=== PATIENT | female | born 1965 | race Caucasian/White ===

== ENCOUNTER 2018-04-08 07:49 | Observation (INO) ==
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
[2018-04-08] MEDS ORDERED: Sodium Chlor 0.9% Inj 500 ML IV.CONT ONE (08:45)
[2018-04-08] MEDS ORDERED: Metoprolol Tartrate 25 MG Tablet PO ONE (08:45)
[2018-04-08] MEDS ORDERED: Chlorhexidine Gluconate 2% 1 Pack (2 Cloths) TOPICAL ONE (08:45)
[2018-04-08] MEDS ORDERED: Vancomycin Inj 1,000 MG in Sodium Chlor 0.9% Inj 250 ML IV.SIG ONE (09:00)
[2018-04-08] MEDS ORDERED: Bupivacaine/Epinephrine PF Inj 0.5% 30 ML Vial ONE (09:21)
[2018-04-08] MEDS ORDERED: Thrombin Topical Soln 5,000 UNIT Vial TOPICAL ONE ×2 (09:21→10:57)
[2018-04-08] MEDS ORDERED: Gelatin Size 100 Topical Foam ONE (09:22)
[2018-04-08] MEDS ORDERED: Propofol Inj 500 MG/50 ML Vial ONE (09:22)
[2018-04-08] MEDS ORDERED: Bisacodyl 10 MG Supp RECTAL PRN (09:45)
[2018-04-08] MEDS ORDERED: Menthol 5.8 MG Lozenge BUCCAL PRN (09:45)
[2018-04-08] MEDS ORDERED: Aluminum/Magnesium/Simethacone Susp 30 ML UDC PO PRN (09:45)
[2018-04-08] MEDS ORDERED: fentaNYL Citrate Inj 100 MCG/2 ML Ampul ONE (11:47)
--- NOTE | 2018-04-08 11:59 | P.OP ---
- Preoperative Diagnosis (1) Stenosis of cervical spine with myelopathy (2) Other cervical disc degeneration at C5-C6 level (3) Protrusion of cervical intervertebral disc Date of procedure: 04/08/18 Procedure: Anterior cervical C5-6 microdiscectomy with interbody fusion; anterior C5-6 cervical plate placement; C5 and 6 interbody cage placement; microsurgical technique Anesthesia: JOSÉ MIGUEL Surgeon: Tim Tyson MD Door Patcher: Daren Rehman Estimated blood loss (mL): 30 Operation and Findings: Following administration of general endotracheal anesthesia with the neck maintaining a neutral position in a Callender collar, the patient received a gram of vancomycin and Decadron 10 mg intravenously. Sequential compression devices were placed in supine position on a Manav table and all pressure points adequately padded. The head secured in a donut and anterior cervical region then shaved and prepped with Chloraprep and sterilely draped with Ioban along with the usual sterile draping. A transverse skin incision on the left side of the neck was then made after infiltrating the skin with 0.5% Marcaine with epinephrine solution extending down through the platysma. At the anterior border of the sternocleidomastoid further dissection was undertaken developing a plane between the carotid sheath laterally and the trachea esophagus medially. The prevertebral fascia was exposed and dissected out. The medial attachments of the longus colli muscles were detached and a self-retaining retractor used for exposure. The C5-6 disc space was localized with a marking the disc space and using lateral fluoroscopy. Butte distraction screws 14 mm length were placed one in the C5 and one in the C6 body interbody distraction and exposure. There was significant disc degeneration with disc height collapse and anterior osteophytes noted at the C5-6 level and the osteophytes were resected with a Leksell and annulus incised with a 15 blade and further dissection undertaken using microtechnique with microscope magnification. Diskectomy was undertaken with pituitaries and the endplates were also decorticated with curettes and drill bit. And more posteriorly there was disk osteophyte complex compressing the thecal sac along with a significant uncovertebral joint hypertrophy with foraminal stenosis which was decompressed along with removal of the posterior longitudinal ligaments at both levels. The foramen was decompressed bilaterally using a Kerrison's and palpation with a nerve hook, the exiting nerve roots were felt to be free. The area was then copiously irrigated. I then placed a Peek cage packed with local autograft bone at the C5-6 interspace under fluoroscopy guidance. Butte distraction pins were removed and the holes plugged with Gelfoam for hemostasis. In order to facilitate the fusion and provide stabilization, a Precision spine cervical Uniplate was then placed with 14 mm variable angle screw in the C5 body and 14 mm fixed angle screw in the C6 body. The plate screw locking mechanism was then engaged. AP and lateral fluoroscopy confirmed good placement of the construct and the retractor was then removed. Muscular bleeding points were cauterized with bipolar cautery and Gelfoam was then also used for hemostasis which was removed. The platysma was then approximated using 3-0 Vicryl interrupted stitches and 3-0 Vicryl subcuticular stitch also placed in an interrupted fashion, and final skin closure was with Mastisol and Steri-Strips. Sterile dressing was then applied. The patient was then extubated and taken to the recovery room. There are no intraoperative complications and all sponge and needle counts were correct at the end of procedure. Estimated blood loss was about 30 cc. The patient did undergo intraoperative neurologic monitoring which remained stable throughout the surgery.
[2018-04-08] MEDS ORDERED: *morphine SULFATE 4 MG/ML PERIprocedure ONLY ONE (12:03)
--- NOTE | 2018-04-08 12:52 | XR ---
EXAM DATE: 04/08/2018 12:43 PM EST AGE/SEX: 53 years / Female INDICATIONS: Post-op C5-C6 anterior cervical fusion. CLINICAL DATA: This is the patient's initial encounter. Patient reports that signs and symptoms have been present for 1 day and indicates a pain score of Nonresponsive. MEDICAL/SURGICAL HISTORY: Non-responsive. Non-responsive. COMPARISON: [facility] [place] CERVICAL COMPLETE ([id number]), 08/24/2012. . FINDINGS: Multiple coned down views of the cervical spine were obtained and demonstrate the patient is status p ost interval anterior fusion at the C5-6 level with anterior screw plate fixation device. Bone grafti ng material is noted in the interspaces. There is a mild anterior spondylolisthesis of C4 on C5 again noted. The lower vertebral column is not well visualized or evaluated. CONCLUSION: 1. Status post interval anterior fusion at the C5-6 level. 2. Mild grade 1 anterior spondylolisthesis of C4 on C5 again noted. Electronically signed by: Ren Salmeron MD 04/08/2018 12:51 PM EST
[2018-04-08] MEDS: Gabapentin 100 MG Capsule PO SCH ×2 (13:30→17:39)
[2018-04-08] MEDS ORDERED: *Meperidine Inj 25 MG/ML Vial PERIprocedural Use ONLY ONE (13:38)
[2018-04-08] MEDS: ceFAZolin 1 GM Premix Inj 1 GM/50 ML PIGGYBACK IV.SIG SCH ×2 (14:29→22:23)
[2018-04-08] MEDS: Morphine Sulfate Inj 2 MG/ML Vial IV.PUSH PRN (18:23)
[2018-04-08] MEDS: Senna/Docusate Sodium 8.6/50 MG Tablet PO SCH (20:38)
[2018-04-08] MEDS ORDERED: Zolpidem Tartrate 5 MG Tablet PO PRN (21:00)
[2018-04-09] MEDS: Morphine Sulfate Inj 2 MG/ML Vial IV.PUSH PRN (04:46)
[2018-04-09 05:47] VITALS: O2SAT 94
[2018-04-09] MEDS: Gabapentin 100 MG Capsule PO SCH (08:15)
[2018-04-09] MEDS: Senna/Docusate Sodium 8.6/50 MG Tablet PO SCH (08:15)
[2018-04-09] MEDS: ceFAZolin 1 GM Premix Inj 1 GM/50 ML PIGGYBACK IV.SIG SCH (08:21)
[2018-04-09 08:24] VITALS: BP 129/58; PULSE 75; RESP 18; TEMP 98
[2018-04-09] MEDS ORDERED: amLODIPine 10 MG Tablet PO SCH (09:00)
--- NOTE | 2018-04-09 09:18 | P.PNNS ---
Subjective Interval history: Pt s/p Anterior cervical C5-6 microdiscectomy with interbody fusion; anterior C5 -6 cervical plate placement; C5 and 6 interbody cage placement; microsurgical technique on 04/08/18. She is doing very well. She denies any difficulty swallowing. She is ambulating very well. She has some incisional pain. No radiculopathy in UEs. Physical Exam Vital signs: Vital Signs 04/08/18 11:43 04/08/18 12:00 04/08/18 12:15 Temperature 98 F Pulse Rate 74 76 64 Respiratory Rate 18 18 18 Blood Pressure 146/85 H 141/83 H 147/82 H Pulse Oximetry 98 98 98 04/08/18 12:30 04/08/18 12:45 04/08/18 13:45 Temperature Pulse Rate 68 64 71 Respiratory Rate 18 18 18 Blood Pressure 136/76 135/74 138/77 Pulse Oximetry 98 98 98 04/08/18 15:15 04/08/18 16:00 04/08/18 16:31 Temperature 98.1 F 97.5 F L Pulse Rate 71 76 Respiratory Rate 18 17 14 Blood Pressure 127/79 142/81 H Pulse Oximetry 98 93 L 04/08/18 19:58 04/08/18 20:39 04/08/18 22:24 Temperature 97.9 F Pulse Rate 78 Respiratory Rate 17 20 18 Blood Pressure 131/69 Pulse Oximetry 93 L 04/08/18 23:48 04/09/18 01:16 04/09/18 04:37 Temperature 98.0 F 97.9 F Pulse Rate 75 76 Respiratory Rate 18 17 19 Blood Pressure 123/66 130/75 Pulse Oximetry 93 L 94 L 04/09/18 05:01 04/09/18 05:02 04/09/18 08:24 Temperature 98.0 F Pulse Rate 75 Respiratory Rate 18 17 18 Blood Pressure 129/58 L Pulse Oximetry 94 L Intake & Output 04/08/18 04/09/18 04/09/18 18:59 06:59 18:59 Intake Total 1660 / 1660 2490 / 2490 Output Total 50 / 50 Balance 1610 / 1610 2490 / 2490 Weight 57.3 kg 62.3 kg Intake: IV 1300 / 1300 1050 / 1050 LR 1000 mL Inj 1,000 ML @ 30 1000 / 1000 mls/hr IV.CONT .Q24H [facility] Rx#: [id number] NS + KCl 20 mEq Inj 1,000 ML @ 1000 / 1000 100 mls/hr IV.CONT .Q10H [facility] Rx #:[id number] Vancomycin Inj 1,000 MG In NS 250 / 250 Inj 250 ML @ 250 mls/hr IV.SIG [employer] ONE Rx#:[id number] Ancef 1 GM Premix Inj 1 gm In 50 / 50 50 / 50 50 ml @ 100 mls/hr IV.SIG Q8H [facility] Rx#:[id number] Oral 360 / 360 1440 / 1440 Output: Estimated Blood Loss 50 / 50 Other: # Voids 1 7 Date of Last Bowel Movement 04/08/18 04/09/18 # Bowel Movements 1 Weight On Admission 57.3 kg - Constitutional no acute distress, average body habitus, cooperative - Routine HEENT Exam Head: Present: normocephalic Eye: Present: PERRL. Absent: conjunctival icterus - Routine Respiratory Exam Present: CTA bilaterally. Absent: respiratory distress, rhonchi, wheezes - Routine Cardiovascular Exam Present: RRR, S1, S2. Absent: murmur - Routine Abdominal Exam Present: soft, normoactive bowel sounds. Absent: distended, firm - Routine Skin Exam Absent: cyanosis, erythema Comments: Incision clean and dry without signs of infection. - Routine Neurological Exam Present: alert, moving all extremities, normal speech. Absent: motor deficit, altered mental status - Routine Psychiatric Exam Present: normal affect, cooperative, anxious. Absent: depressed, agitated Assessment and Plan - Assessment (1) Stenosis of cervical spine with myelopathy Code(s): M48.02 - Spinal stenosis, cervical region; G99.2 - Myelopathy in diseases classified elsewhere Status: Chronic (2) Other cervical disc degeneration at C5-C6 level Code(s): M50.322 - Other cervical disc degeneration at C5-C6 level Status: Chronic (3) Protrusion of cervical intervertebral disc Code(s): M50.20 - Other cervical disc displacement, unspecified cervical region Status: Chronic - Plan A: Pt s/p Anterior cervical C5-6 microdiscectomy with interbody fusion; anterior C5-6 cervical plate placement; C5 and 6 interbody cage placement; microsurgical technique on 04/08/[address] Tyson. P: Discharge pt home Keep incision clean and dry. Discussed incisional care with pt. Discussed restrictions.
== END 2018-04-09 10:30 | disposition home or self-care (01) ==
LOC: HSDC 07:49 → HSDI 07:49 → N06 15:45
PROVIDERS: ADMIT Neurological Surgery; ATTEND Neurological Surgery

== ENCOUNTER 2018-04-24 13:59 | Inpatient (IN) ==
[2018-04-24] MEDS ORDERED: Sod Chloride 0.9% Inj 1,000 ML IV.SIG SCH ×2 (14:45→16:45)
--- NOTE | 2018-04-24 14:54 | XR ---
EXAM DATE: 04/24/2018 2:51 PM EST AGE/SEX: 53 years / Female INDICATIONS: Fever. CLINICAL DATA: This is the patient's initial encounter. Patient reports that signs and symptoms have been present for 2 days and indicates a pain score of 8/10. MEDICAL/SURGICAL HISTORY: Hypertension. . Cervical spine surgery. COMPARISON: [facility] – [place], CHEST 2V PA&LAT, 04/02/2018. . FINDINGS: A single AP view of the chest demonstrates the lungs to be symmetrically aerated without evidence of mass, infiltrate or effusion. The lungs are hyperaerated bilaterally. The cardiomediastinal contours are unremarkable. Osseous structures are intact. CONCLUSION: No acute intrathoracic disease. Stable examination. Electronically signed by: Nitish Delaney MD Board Certified Radiologist 04/24/2018 2:53 PM EST
[2018-04-24 15:17] LABS: Baso % (Auto) 0.3 % (0.0-2.0); Eos % (Auto) 0.2 % (0.0-4.0); Hematocrit 37.2 % (35.0-46.0); Hemoglobin 13.2 gm/dL (11.6-15.3); Lymph # (Auto) 0.9 th/mm3 (1.0-4.8); Lymph % (Auto) 6.4 % (9.0-44.0); Mean Corpuscular HGB Conc 35.5 % (32.0-36.0); Mean Corpuscular Hemoglobin 31.2 pg (27.0-34.0); Mean Corpuscular Volume 87.9 fL (80.0-100.0); Mean Platelet Volume 7.8 fL (7.0-11.0); Mono # (Auto) 1.3 th/mm3 (0.0-0.9); Mono % (Auto) 9.3 % (0.0-8.0); Neut % (Auto) 83.8 % (16.0-70.0); Platelet Count 303 th/mm3 (150-450); Red Blood Count 4.23 mil/mm3 (4.00-5.30); Red Cell Distribution Width 13.8 % (11.6-17.2); White Blood Count 14.3 th/mm3 (4.0-11.0)
--- NOTE | 2018-04-24 15:24 | CT ---
EXAM DATE: 04/24/2018 3:12 PM EST AGE/SEX: 53 years / Female INDICATIONS: Neck pain, swelling. Fever. CLINICAL DATA: This is the patient's initial encounter. Patient reports that signs and symptoms have been present for 2 days and indicates a pain score of 6/10. MEDICAL/SURGICAL HISTORY: Hypertension. Tubal ligation. Cervical fusion two weeks ago. Mandible surgery. RADIATION DOSE: 13.98 CTDI (mGy) COMPARISON: [facility] – [place], [place] LUMBAR SPINE W/O CONTRAST, 03/08/2018. [facility] – [place], CT THORACIC SPINE W/O CONTRAS T, 03/08/2018. . TECHNIQUE: Contiguous axial images were obtained using helical multirow detector technique. The vol umetric data was post-processed with multiplanar reconstruction in oblique axial, sagittal, and coron al planes. Using automated exposure control and adjustment of the mA and/or kV according to patient s ize, radiation dose was kept as low as reasonably achievable to obtain optimal diagnostic quality kisha ges. DICOM format image data is available electronically for review and comparison. FINDINGS: Anterior cervical fusion hardware is noted at C5 and C6. There is no acute fracture or prevertebral s oft tissue swelling. Cervical spondylosis is noted at C4-5 and C6-7. Mild scoliosis is noted. C2-3: The bony spinal canal is normal in size. No evidence of disc bulge or herniation. Mild bilate ral foraminal narrowing is noted. C3-4: The bony spinal canal is normal in size. No evidence of disc bulge or herniation. Mild bilate ral foraminal narrowing is noted. C4-5: Mild spinal stenosis is noted. Severe left neuroforaminal narrowing and mild right neuroforami nal narrowing are noted. C5-6: Moderate spinal stenosis is noted. Severe right neuroforaminal narrowing and moderate left jose roforaminal narrowing are noted. C6-7: The bony spinal canal is normal in size. No evidence of disc bulge or herniation. Moderate ri ght neuroforaminal narrowing is noted. C7-T1: The bony spinal canal is normal in size. No evidence of disc bulge or herniation. The neura l foramina are bilaterally patent. CONCLUSION: 1. No acute fracture or prevertebral soft tissue swelling. 2. Moderate spinal stenosis, severe right neuroforaminal narrowing and moderate left foraminal narro wing at C5-6. 3. Mild spinal stenosis, severe left neuroforaminal narrowing, and mild right neuroforaminal narrowi ng at C4-5. 4. Moderate right neuroforaminal narrowing at C6-7. 5. Mild bilateral foraminal narrowing is noted at C2-3 and C3-4. 6. Scoliosis of the cervical spine. Electronically signed by: Daren Rodriguez MD Board Certified Radiologist 04/24/2018 3:23 PM EST
--- NOTE | 2018-04-24 15:25 | ED ---
HPI General Chief Complaint: Fever Stated Complaint: Fever Complaint Time Seen by Provider: 04/24/18 14:24 Source: patient and family Mode of arrival: ambulatory Limitations: no limitations History of Present Illness HPI Narrative: Patient is a 53-year-old female presenting to emergency department for evaluation of fevers. Patient has had a max temp of 102.6, symptoms been ongoing for the last 2 days. Patient reports generalized body aches and fatigue. Patient states she vomited this morning which was just clear fluids and possibly her home morning medications. She reports urinary frequency and 6 out of 10 lower back pain is constant and aching. Patient had a cervical fusion done approximately 2 weeks ago, she denies any increase in neck pain. Symptom onset was gradual, symptoms are moderate. She does report that she has a 13-year-old daughter who complained of a sore throat but has been otherwise well. Past medical history is significant also for hypertension. Patient has not taken any medications recently, she took NyQuil around 4 AM this morning. Patient denies any redness, foul odor or drainage from previous incision site. MD complaint: Reports fever and malaise Onset (ago): day(s) (2) Maximum Temperature: 102.6 F Temperature Source: oral Context: Reports sick contacts Associated symptoms: Reports chills, myalgias, nasal congestion, cough and vomiting Relieving factors: nothing Exacerbating factors: nothing Treatments prior to arrival fever: Reports "cold medicine" Related Data Home Medications Medication Instructions Recorded Confirmed gabapentin 100 mg PO TID 03/08/18 04/24/18 amlodipine 10 mg PO DAILY 04/02/18 04/24/18 cyclobenzaprine 5 mg PO TID PRN 04/08/18 04/24/18 Previous Rx's Medication Instructions Recorded hydrocodone-acetaminophen 1 tab PO Q4H PRN #60 tab 04/08/18 Allergies Allergy/AdvReac Type Severity Reaction Status Date / Time erythromycin base Allergy Severe RASH AND Verified 04/24/18 14:17 SOB Review of Systems ROS: all other systems reviewed are negative [facility] Medical History Medical History Anxiety (Acute) Arthritis (Acute) Chronic headaches (Acute) Chronic neck and back pain (Acute) Depression (Acute) High cholesterol (Acute) Hypertension (Acute) No natural teeth (Acute) Right pupil malformation (Acute) Surgical History Surgical History H/O tubal ligation (Acute) History of mandibular surgery (Acute) S/P emergency tracheotomy for assistance in breathing (Acute) Social History Social History Substance History: No History of Abuse Second Hand Smoke Exposure: Yes Smoking Status: Current every day smoker Tobacco Type: Cigarettes How Often Do You Have a Drink Containing Alcohol: 2 to 4 times a month Recent Travel in [facility] within the Last 8 Weeks: No Recent Out of Country Travel within the Last 8 Weeks: No Immunization History Tetanus Immunization: Unsure Exam Narrative Exam Narrative: GENERAL: Thin, well-developed, alert female. Appears uncomfortable, no acute distress. SKIN: Focused skin assessment warm/dry. Healed incision to anterior cervical area, no redness, drainage, induration noted. HEAD: Atraumatic. Normocephalic. EYES: Pupils equal and round. No scleral icterus. No injection or drainage. ENT: No nasal bleeding or discharge. Mucous membranes pink and moist. NECK: Trachea midline. No JVD. CARDIOVASCULAR: Tachycardic. No murmur appreciated. RESPIRATORY: No accessory muscle use. Clear to auscultation. Breath sounds equal bilaterally. GASTROINTESTINAL: Abdomen soft, non-tender, nondistended. Hepatic and splenic margins not palpable. MUSCULOSKELETAL: No obvious deformities. No clubbing. No cyanosis. No edema. NEUROLOGICAL: Awake and alert. No obvious cranial nerve deficits. Motor grossly within normal limits. Normal speech. PSYCHIATRIC: Appropriate mood and affect; insight and judgment normal. Course Initial Documented Vital Signs Temperature 101.6 F H 04/24/18 14:15 Pulse Rate 123 H 04/24/18 14:15 Respiratory Rate 22 04/24/18 14:15 Blood Pressure 136/73 04/24/18 14:15 Pulse Oximetry 97 04/24/18 14:15 Last Documented Vital Signs Temperature 100.9 F H 04/24/18 16:34 Pulse Rate 120 H 04/24/18 16:34 Respiratory Rate 15 04/24/18 16:34 Blood Pressure 106/58 L 04/24/18 16:34 Pulse Oximetry 96 04/24/18 16:34 Medical Decision Making MDM Narrative Medical decision making narrative: Patient is a 53-year-old female presenting with 2 days of fevers and body aches. Patient has temp on arrival, she is mildly tachycardic. Sepsis workup initiated. Patient will be given acetaminophen IV for fever. IV fluids ordered. CBC with white blood cell count of 14.3, lactic acid 2.0, urinalysis is consistent with a urinary tract infection, reflex culture is pending. Chemistry is unremarkable. Patient continued to have a low-grade fever after administration of IV acetaminophen, ibuprofen p.o. ordered. Patient will also be given additional liter of IV fluids. Patient was given Zosyn IV. CT scan of the cervical spine shows no soft tissue swelling. Patient meets sepsis criteria, discussed with Dr. Perez who accepted admission. Admit orders placed. Patient and spouse were advised on clinical findings and plan of care and are agreeable. Medical Screen Exam Complete: Yes Emergency Medical Condition: Yes Differential Diagnosis Differential Diagnosis: Postoperative infection versus influenza versus viral syndrome versus pneumonia versus other Medical Records Medical records reviewed: Yes I reviewed the patient's medical records. Lab Data Lab results reviewed: Yes I reviewed the patient's lab results. Result diagrams: 04/24/18 14:45 04/24/18 14:45 Lab Results 04/24/18 04/24/18 04/24/18 Range/Units 14:45 14:45 14:45 WBC 14.3 H (4.0-11.0) th/mm3 RBC 4.23 (4.00-5.30) mil/mm3 Hgb 13.2 (11.6-15.3) gm/dL Hct 37.2 (35.0-46.0) % MCV 87.9 (80.0-100.0) fL MCH 31.2 (27.0-34.0) pg MCHC 35.5 (32.0-36.0) % RDW 13.8 (11.6-17.2) % Plt Count 303 (150-450) th/mm3 MPV 7.8 (7.0-11.0) fL Neut % (Auto) 83.8 H (16.0-70.0) % Lymph % (Auto) 6.4 L (9.0-44.0) % [place] % (Auto) 9.3 H (0.0-8.0) % Eos % (Auto) 0.2 (0.0-4.0) % Baso % (Auto) 0.3 (0.0-2.0) % Neut # (Auto) 12.0 H (1.8-7.7) th/mm3 Lymph # (Auto) 0.9 L (1.0-4.8) th/mm3 [place] # (Auto) 1.3 H (0.0-0.9) th/mm3 Eos # (Auto) 0.0 (0.0-0.4) th/mm3 Baso # (Auto) 0.0 (0.0-0.2) th/mm3 WBC Differential . Differential Comment Auto diff final Sodium 135 L (136-145) meq/L Potassium 3.5 (3.5-5.1) meq/L Chloride 101 (98-107) meq/L Carbon Dioxide 25.8 (21.0-32.0) meq/L Anion Gap 8 (5-15) meq/L BUN 6 L (7-18) mg/dL Creatinine 0.72 (0.50-1.00) mg/dL Estimated GFR 85 L (>89) mL/min Random Glucose 130 H (74-106) mg/dL Lactic Acid 2.0 (0.4-2.0) mmol/L Calcium 8.5 (8.5-10.1) mg/dL Magnesium 2.0 (1.5-2.5) mg/dL Total Bilirubin 0.2 (0.2-1.0) mg/dL AST 24 (15-37) U/L ALT 17 (10-53) U/L Alkaline Phosphatase 105 (45-117) U/L Total Protein 7.7 (6.4-8.2) g/dL Albumin 3.1 L (3.4-5.0) g/dL Urine Color (Yellw/Straw) Urine Clarity (Clear) Urine pH (5.0-8.5) Ur Specific [place] (1.002-1.035) Urine Protein (Neg-Trace) mg/dL Urine Glucose (UA) (Negative) mg/dL Urine Ketones (Negative) mg/dL Urine Occult Blood (Negative) Urine Nitrate (Negative) Urine Bilirubin (Negative) Urine Urobilinogen (Less than 2) mg/dL Ur Leukocyte Esterase (Negative) Urine RBC (0-3) /hpf Urine WBC (0-5) /hpf Ur Squamous Epith Cells (0-5) /hpf Urine Bacteria (None) /hpf Micro UA Comment Ur Microscopic Review Urine Culture Comments 04/24/18 Range/Units 14:50 WBC (4.0-11.0) th/mm3 RBC (4.00-5.30) mil/mm3 Hgb (11.6-15.3) gm/dL Hct (35.0-46.0) % MCV (80.0-100.0) fL MCH (27.0-34.0) pg MCHC (32.0-36.0) % RDW (11.6-17.2) % Plt Count (150-450) th/mm3 MPV (7.0-11.0) fL Neut % (Auto) (16.0-70.0) % Lymph % (Auto) (9.0-44.0) % [place] % (Auto) (0.0-8.0) % Eos % (Auto) (0.0-4.0) % Baso % (Auto) (0.0-2.0) % Neut # (Auto) (1.8-7.7) th/mm3 Lymph # (Auto) (1.0-4.8) th/mm3 [place] # (Auto) (0.0-0.9) th/mm3 Eos # (Auto) (0.0-0.4) th/mm3 Baso # (Auto) (0.0-0.2) th/mm3 WBC Differential Differential Comment Sodium (136-145) meq/L Potassium (3.5-5.1) meq/L Chloride (98-107) meq/L Carbon Dioxide (21.0-32.0) meq/L Anion Gap (5-15) meq/L BUN (7-18) mg/dL Creatinine (0.50-1.00) mg/dL Estimated GFR (>89) mL/min Random Glucose (74-106) mg/dL Lactic Acid (0.4-2.0) mmol/L Calcium (8.5-10.1) mg/dL Magnesium (1.5-2.5) mg/dL Total Bilirubin (0.2-1.0) mg/dL AST (15-37) U/L ALT (10-53) U/L Alkaline Phosphatase (45-117) U/L Total Protein (6.4-8.2) g/dL Albumin (3.4-5.0) g/dL Urine Color Yellow (Yellw/Straw) Urine Clarity Cloudy H (Clear) Urine pH 5.0 (5.0-8.5) Ur Specific [place] 1.012 (1.002-1.035) Urine Protein 100 H (Neg-Trace) mg/dL Urine Glucose (UA) Negative (Negative) mg/dL Urine Ketones Negative (Negative) mg/dL Urine Occult Blood Moderate H (Negative) Urine Nitrate Positive H (Negative) Urine Bilirubin Negative (Negative) Urine Urobilinogen Less than 2 (Less than 2) mg/dL Ur Leukocyte Esterase Moderate H (Negative) Urine RBC 5 H (0-3) /hpf Urine WBC (0-5) /hpf Ur Squamous Epith Cells 5 (0-5) /hpf Urine Bacteria Occasional H (None) /hpf Micro UA Comment Culture indicated Ur Microscopic Review Not Reportable Urine Culture Comments Culture indicated Imaging Data Radiologist's impression: Cervical Spine CT 04/24/18 14:34 CONCLUSION: 1. No acute fracture or prevertebral soft tissue swelling. 2. Moderate spinal stenosis, severe right neuroforaminal narrowing and moderate left foraminal narrowing at C5-6. 3. Mild spinal stenosis, severe left neuroforaminal narrowing, and mild right neuroforaminal narrowing at C4-5. 4. Moderate right neuroforaminal narrowing at C6-7. 5. Mild bilateral foraminal narrowing is noted at C2-3 and C3-4. 6. Scoliosis of the cervical spine. Chest X-Ray 04/24/18 14:34 CONCLUSION: No acute intrathoracic disease. Stable examination. Discharge Plan Discharge Disposition Patient Disposition: ED Admit(ED Internal Use Only) Discharge Condition Condition: Stable Discharge Order Discharge Orders: ED Use Only Admit Order (Routine); Ordered 04/24/18 Ordered By: Nathalie Redding Discharge Details Diagnosis: Sepsis, Pyelonephritis Physicians Team ED Provider: Fabby Borges ED Midlevel Provider: Nathalie Redding Primary Care Provider: Claudia Bhardwaj Attending Provider: Doris Perez Other Providers: [facility],Insurance Status ED Status: Admitted Patient
[2018-04-24 15:28] LABS: Bacteria,Urine Occasional /hpf; Bilirubin,Urine Negative (Negative); Clarity,Urine Cloudy (Clear); Color,Urine Yellow (Yellw/Straw); Glucose,Urine (UA) Negative (Negative); Leukocyte Esterase,Urine Moderate (Negative); Nitrite,Urine Positive (Negative); Specific Gravity,Urine 1.012 (1.002-1.035); Squamous Epithelial Cell,Urine 5 /hpf (0-5)
[2018-04-24] MEDS ORDERED: Piperacil/Tazo 4.5 GM Premix 4.5 GM/100 ML BAG IV.SIG STA (15:35)
[2018-04-24 15:50] LABS: Alkaline Phosphatase 105 U/L (45-117); Total Protein 7.7 g/dL (6.4-8.2)
[2018-04-24 15:51] LABS: Alanine Aminotransferase 17 U/L (10-53); Albumin 3.1 g/dL (3.4-5.0); Anion Gap 8 meq/L (5-15); Aspartate Aminotransferase 24 U/L (15-37); Blood Urea Nitrogen 6 mg/dL (7-18); Calcium 8.5 mg/dL (8.5-10.1); Carbon Dioxide 25.8 meq/L (21.0-32.0); Chloride 101 meq/L (98-107); Glomerular Filtration Rate 85 mL/min (>89); Glucose,Random 130 mg/dL (74-106); Potassium 3.5 meq/L (3.5-5.1); Sodium 135 meq/L (136-145)
[2018-04-24] MEDS ORDERED: Bisacodyl 10 MG Supp RECTAL PRN (17:40)
[2018-04-24] MEDS ORDERED: Acetaminophen 325 MG Tablet PO PRN (17:40)
--- NOTE | 2018-04-24 18:00 | P.HP ---
History of Present Illness Service: [facility] Primary Care Physician: Claudia Bhardwaj APRN Chief Complaint: Fevers History of Present Illness: 53-year-old female with past medical history significant for hypertension, hyperlipidemia, cervical myelopathy with recent anterior cervical C5-6 microdiscectomy with internal body fusion, anterior cervical plate placement, C5 and 6 interbody cage placement by 04/08, and tobacco abuse who presents to the emergency department today with complaints of fevers for the past several days. Patient states she had a fever yesterday of 102.9 and endorses generalized body aches, nausea x1 today and sore throat. Patient states that she has had somewhat of a sore throat since her surgery but this is unchanged. Denies any cough, shortness of breath, dizziness, lightheadedness. Endorses constipation, last BM today. She complains of suprapubic pain along with bilateral lower back pain, urinary frequency, dysuria. She denies any increase neck pain. Lab work on admission with leukocytosis with white count 14.3, neutrophils 83.8, heart rate 123, temperature 101.6, UA positive with reflex to culture, meeting sepsis criteria. Cervical CT with no perivertebral soft tissue swelling. Chest x-ray negative. - Diagnosis (1) Hyponatremia (2) Stenosis of cervical spine with myelopathy (3) Sepsis (4) Pyelonephritis Inpatient Certification: I certify that the inpatient services were ordered in accordance with Medicare regulations governing the order. This includes certification that hospital inpatient services are reasonable and necessary and in the case of services not specified as inpatient-only under 42 CFR 419.22(n), that they are appropriately provided as inpatient services in accordance to with the 2-midnight benchmark under 43 CFR 412.3(e) Estimated Total Length of Stay (Days): 3 Plans for Post Hospital Care: Home [facility] - History History Provided By: Patient - Medical History Medical History: Medical History (Last Updated 04/24/18 @ 17:52 by Mey Burch) Cervical myelopathy Anxiety Arthritis Chronic headaches Chronic neck and back pain Depression High cholesterol Hypertension No natural teeth Right pupil malformation - Surgical History Surgical History: Surgical History (Last Updated 04/24/18 @ 17:54 by Mey Burch) H/O cervical discectomy H/O tubal ligation History of mandibular surgery S/P emergency tracheotomy for assistance in breathing - Family History Family History: Family History (Last Updated 04/24/18 @ 17:55 by Mey Burch) Mother Breast cancer Mother No problems noted. Father Asthma - Social History I have reviewed the patient's Social History: Yes - Tobacco History Second Hand Smoke Exposure: Yes Tobacco Use In Past 30 Days: Yes Smoking Status: Current every day smoker Tobacco Type: Cigarettes - Alcohol History How Often Do You Have a Drink Containing Alcohol: 2 to 4 times a month - Substance Use History Substance History: No History of Abuse - Travel History Recent Travel in the [place] Within the Last 8 Weeks: No Recent Travel Out of the Country Within the Last 8 Weeks: No - Immunization History Tetanus Immunization: Unsure Medications and Allergies Active Medications: Active Medications Acetaminophen (Tylenol) 650 mg PO Q4H PRN PRN Reason: Temp > 100.4 Hydrocodone Bitart/Acetaminophen (Rudy 10/325) 1 tab PO Q4H PRN PRN Reason: Pain Al Hydroxide/Mg Hydroxide (Milk Of Magnesia Liq) 30 ml PO Q12H PRN PRN Reason: Mild Constipation Amlodipine Besylate (Norvasc) 10 mg PO DAILY [place] Bisacodyl (Dulcolax Supp) 10 mg RECTAL DAILY PRN PRN Reason: SEVERE CONSITIPATION Enoxaparin Sodium (Lovenox Inj) 40 mg SQ Q24H LUCA Gabapentin (Neurontin) 100 mg PO TID [facility]CA Ceftriaxone Sodium 1,000 mg/ (Sodium Chloride) 100 mls @ 200 mls/hr IV.SIG Q24H [place] Sodium Chloride (Ns Inj) 1,000 mls @ 100 mls/hr IV.CONT .Q10H [place]CA Lactulose (Lactulose Liq) 30 ml PO DAILY PRN PRN Reason: SEVERE CONSITIPATION Non-Formulary Medication (Cyclobenzaprine [Cyclobenzaprine]) 5 mg PO TID PRN PRN Reason: Anxiety Ondansetron HCl (Zofran Inj) 4 mg IV.PUSH Q6H PRN PRN Reason: NAUSEA OR VOMITING Senna/Docusate Sodium (Farzana-Colace) 1 tab PO BID [facility] Sennosides (Senokot) 17.2 mg PO Q12H PRN PRN Reason: Moderate Constipation Sodium Chloride (Ns Flush) 2 ml IV.FLUSH BID [place]CA Sodium Chloride (Ns Flush) 2 ml IV.FLUSH PRN PRN PRN Reason: FLUSH AFTER USING IV ACCESS Allergies Allergy/AdvReac Type Severity Reaction Status Date / Time erythromycin base Allergy Severe RASH AND Verified 04/24/18 14:17 SOB Home Medications Medication Instructions Recorded Confirmed Type gabapentin 100 mg PO TID 03/08/18 04/24/18 History amlodipine 10 mg PO DAILY 04/02/18 04/24/18 History cyclobenzaprine 5 mg PO TID PRN 04/08/18 04/24/18 History Exam Vital signs: Vital Signs 04/24/18 14:15 04/24/18 14:31 04/24/18 14:44 Temperature 101.6 F H Pulse Rate 123 H 106 H 111 H Respiratory Rate 22 20 Blood Pressure 136/73 117/64 Pulse Oximetry 97 98 96 04/24/18 16:34 Temperature 100.9 F H Pulse Rate 120 H Respiratory Rate 15 Blood Pressure 106/58 L Pulse Oximetry 96 Intake & Output 04/23/18 04/24/18 04/24/18 18:59 06:59 18:59 Intake Total 1200 / 1200 Balance 1200 / 1200 Weight 53.524 kg Intake: IV 1200 / 1200 Ofirmev Inj 1,000 mg In 100 ml 100 / 100 @ 400 mls/hr IV.SIG ONCE ONE Rx #:[id number] Zosyn 4.5 GM Premix 4.5 gm In 100 / 100 100 ml @ 200 mls/hr IV.SIG STAT STA Rx#:[id number] NS Inj 1,000 ML @ 1000 mls/hr 1000 / 1000 IV.SIG BOLUS LUCA Rx#:[id number] Narrative: GENERAL: Well-developed, well-nourished female resting in bed, uncomfortable. SKIN: Warm and dry. HEAD: Atraumatic. Normocephalic. EYES: Pupils equal and round. No scleral icterus. No injection or drainage. ENT: No nasal bleeding or discharge. Mucous membranes pink and moist. Oropharynx with no erythema. Anterior, left-sided surgical incision healing well with no noted erythema or drainage. NECK: Trachea midline. No JVD. CARDIOVASCULAR: Tachycardia with no murmur noted. RESPIRATORY: No accessory muscle use. Clear to auscultation. Breath sounds equal bilaterally. GASTROINTESTINAL: Abdomen soft, nondistended, hypoactive bowel sounds, suprapubic tenderness. MUSCULOSKELETAL: Extremities without clubbing, cyanosis, or edema. No obvious deformities. Bilateral CVA tenderness. NEUROLOGICAL: Awake, alert, oriented x3. No obvious cranial nerve deficits. Motor grossly within normal limits. Normal speech. PSYCHIATRIC: Appropriate mood and affect; insight and judgment normal. Results - Labs CBC & Chem 7: 04/24/18 14:45 04/24/18 14:45 Labs: Laboratory Results - last 24 hr 04/24/18 04/24/18 04/24/18 14:45 14:45 14:45 WBC 14.3 H RBC 4.23 Hgb 13.2 Hct 37.2 MCV 87.9 MCH 31.2 MCHC 35.5 RDW 13.8 Plt Count 303 MPV 7.8 Neut % (Auto) 83.8 H Lymph % (Auto) 6.4 L [place] % (Auto) 9.3 H Eos % (Auto) 0.2 Baso % (Auto) 0.3 Neut # (Auto) 12.0 H Lymph # (Auto) 0.9 L [place] # (Auto) 1.3 H Eos # (Auto) 0.0 Baso # (Auto) 0.0 WBC Differential . Differential Comment Auto diff final Sodium 135 L Potassium 3.5 Chloride 101 Carbon Dioxide 25.8 Anion Gap 8 BUN 6 L Creatinine 0.72 Estimated GFR 85 L Random Glucose 130 H Lactic Acid 2.0 Calcium 8.5 Magnesium 2.0 Total Bilirubin 0.2 AST 24 ALT 17 Alkaline Phosphatase 105 Total Protein 7.7 Albumin 3.1 L Urine Color Urine Clarity Urine pH Ur Specific [place] Urine Protein Urine Glucose (UA) Urine Ketones Urine Occult Blood Urine Nitrate Urine Bilirubin Urine Urobilinogen Ur Leukocyte Esterase Urine RBC Urine WBC Ur Squamous Epith Cells Urine Bacteria Micro UA Comment Ur Microscopic Review Urine Culture Comments 04/24/18 14:50 WBC RBC Hgb Hct MCV MCH MCHC RDW Plt Count MPV Neut % (Auto) Lymph % (Auto) [place] % (Auto) Eos % (Auto) Baso % (Auto) Neut # (Auto) Lymph # (Auto) [place] # (Auto) Eos # (Auto) Baso # (Auto) WBC Differential Differential Comment Sodium Potassium Chloride Carbon Dioxide Anion Gap BUN Creatinine Estimated GFR Random Glucose Lactic Acid Calcium Magnesium Total Bilirubin AST ALT Alkaline Phosphatase Total Protein Albumin Urine Color Yellow Urine Clarity Cloudy H Urine pH 5.0 Ur Specific [place] 1.012 Urine Protein 100 H Urine Glucose (UA) Negative Urine Ketones Negative Urine Occult Blood Moderate H Urine Nitrate Positive H Urine Bilirubin Negative Urine Urobilinogen Less than 2 Ur Leukocyte Esterase Moderate H Urine RBC 5 H Urine WBC Ur Squamous Epith Cells 5 Urine Bacteria Occasional H Micro UA Comment Culture indicated Ur Microscopic Review Not Reportable Urine Culture Comments Culture indicated - Imaging Impressions Cervical Spine CT 04/24/18 14:34 CONCLUSION: 1. No acute fracture or prevertebral soft tissue swelling. 2. Moderate spinal stenosis, severe right neuroforaminal narrowing and moderate left foraminal narrowing at C5-6. 3. Mild spinal stenosis, severe left neuroforaminal narrowing, and mild right neuroforaminal narrowing at C4-5. 4. Moderate right neuroforaminal narrowing at C6-7. 5. Mild bilateral foraminal narrowing is noted at C2-3 and C3-4. 6. Scoliosis of the cervical spine. Chest X-Ray 04/24/18 14:34 CONCLUSION: No acute intrathoracic disease. Stable examination. Caprini VTE Risk Assessment Caprini VTE Risk Assessment: No/Low Risk (score <= 1) Caprini Risk Assessment Model: Point Value = 1 Point Value = 2 Point Value = 3 Point Value = 5 Age 41-60 Minor surgery BMI > 25 kg/m2 Swollen legs Varicose veins or History of unexplained or recurrent spontaneous Oral contraceptives or hormone replacement Sepsis (< 1 month) Serious lung disease, including pneumonia (< 1 month) Abnormal pulmonary function Acute myocardial infarction Congestive heart failure (< 1 month) History of inflammatory bowel disease Medical patient at bed rest Age 61-74 Arthroscopic surgery Major open surgery (> 45 min) Laparoscopic surgery (> 45 min) Malignancy Confined to bed (> 72 hours) Immobilizing plaster cast Central venous access Age >= 75 History of VTE Family history of VTE Factor V Leiden Prothrombin [id number] Lupus anticoagulant Anticardiolipin antibodies Elevated serum homocysteine Heparin-induced thrombocytopenia Other congenital or acquired thrombophilia Stroke (< 1 month) Elective arthroplasty Hip, pelvis, or leg fracture Acute spinal cord injury (< 1 month) Prophylaxis Regimen: Total Risk Factor Score Risk Level Prophylaxis Regimen 0-1 Low Early ambulation 2 Moderate Order ONE of the following: *Sequential Compression Device (SCD) *Heparin 5000 units SQ BID 3-4 Higher Order ONE of the following medications: *Heparin 5000 units SQ TID *Enoxaparin/Lovenox 40 mg SQ daily (WT < 150 kg, CrCl > 30 mL/min) *Enoxaparin/Lovenox 30 mg SQ daily (WT < 150 kg, CrCl > 10-29 mL/min) *Enoxaparin/Lovenox 30 mg SQ BID (WT < 150 kg, CrCl > 30 mL/min) AND/OR *Sequential Compression Device (SCD) 5 or more Highest Order ONE of the following medications: *Heparin 5000 units SQ TID (Preferred with Epidurals) *Enoxaparin/Lovenox 40 mg SQ daily (WT < 150 kg, CrCl > 30 mL/min) *Enoxaparin/Lovenox 30 mg SQ daily (WT < 150 kg, CrCl > 10-29 mL/min) *Enoxaparin/Lovenox 30 mg SQ BID (WT < 150 kg, CrCl > 30 mL/min) AND *Sequential Compression Device (SCD) Assessment and Plan - Assessment (1) Hyponatremia Code(s): E87.1 - Hypo-osmolality and hyponatremia Status: Acute (2) Stenosis of cervical spine with myelopathy Code(s): M48.02 - Spinal stenosis, cervical region; G99.2 - Myelopathy in diseases classified elsewhere Status: Chronic (3) Sepsis Code(s): A41.9 - Sepsis, unspecified organism Status: Acute (4) Pyelonephritis Code(s): N12 - Tubulo-interstitial nephritis, not specified as acute or chronic Status: Acute - Plan 53-year-old female with past medical history significant for hypertension, hyperlipidemia, cervical myelopathy with recent anterior cervical C5-6 microdiscectomy with internal body fusion, anterior cervical plate placement, C5 and 6 interbody cage placement by 04/08, and tobacco abuse who presents to the emergency department today with complaints of fevers for the past several days. Pyelonephritis/urosepsis Sepsis criteria: Fever, tachycardia, leukocytosis, suspected source, lactic acid 2.0 -Received one-time dose of IV Zosyn in the ED, will continue IV Rocephin -Follow UA culture and sensitivity, monitor white count -Blood cultures x2 pending -Influenza negative -Pain control with Rudy, Tylenol as needed for fever Recent cervical fusion/discectomy -CT scan with no soft tissue swelling -Continue gabapentin and as needed pain medications Hyponatremia, mild NA 135 -Continue IV hydration -Monitor BMP Constipation, chronic -PRN stool softeners, daily MiraLAX, hydration DVT prophylaxissubcu Lovenox Discussed Condition With: Patient and Dr. Perez Discharge Planning: Patient will likely discharge home.
[2018-04-24] MEDS: Gabapentin 100 MG Capsule PO SCH (18:23)
[2018-04-24] MEDS: Sod Chloride 0.9% Inj 1,000 ML IV.CONT SCH (18:24)
[2018-04-24] MEDS: Enoxaparin Inj 40 MG/0.4 ML Syringe SQ SCH (22:25)
[2018-04-24] MEDS: Senna/Docusate Sodium 8.6/50 MG Tablet PO SCH (22:25)
[2018-04-25] MEDS: Sod Chloride 0.9% Inj 1,000 ML IV.CONT SCH ×3 (03:14→23:29)
[2018-04-25 07:13] LABS: Baso % (Auto) 0.3 % (0.0-2.0); Eos % (Auto) 0.1 % (0.0-4.0); Hematocrit 34.6 % (35.0-46.0); Lymph % (Auto) 8.1 % (9.0-44.0); Mean Corpuscular HGB Conc 34.7 % (32.0-36.0); Mean Corpuscular Hemoglobin 30.5 pg (27.0-34.0); Mean Corpuscular Volume 87.9 fL (80.0-100.0); Mono # (Auto) 1.3 th/mm3 (0.0-0.9); Mono % (Auto) 10.2 % (0.0-8.0); Neut % (Auto) 81.3 % (16.0-70.0); Platelet Count 271 th/mm3 (150-450); Red Blood Count 3.93 mil/mm3 (4.00-5.30); Red Cell Distribution Width 13.6 % (11.6-17.2); White Blood Count 12.3 th/mm3 (4.0-11.0)
[2018-04-25 07:32] LABS: Anion Gap 9 meq/L (5-15); Blood Urea Nitrogen 4 mg/dL (7-18); Calcium 8.1 mg/dL (8.5-10.1); Carbon Dioxide 24.6 meq/L (21.0-32.0); Chloride 106 meq/L (98-107); Glomerular Filtration Rate Greater Than 89 mL/min (>89); Glucose,Random 100 mg/dL (74-106); Sodium 140 meq/L (136-145)
[2018-04-25] MEDS: Senna/Docusate Sodium 8.6/50 MG Tablet PO SCH ×2 (08:25→20:51)
[2018-04-25] MEDS: Polyethylene Glycol 3350 17 GM Packet PO SCH (08:25)
[2018-04-25] MEDS: Gabapentin 100 MG Capsule PO SCH ×4 (08:25→17:20)
[2018-04-25] MEDS: amLODIPine 10 MG Tablet PO SCH (08:25)
--- NOTE | 2018-04-25 16:19 | P.PNIM ---
Subjective Interval history: Patient complains of left-sided flank pain which is improving. She also has dysuria which she says is also slightly improved from yesterday. Physical Exam Vital signs: Vital Signs 04/24/18 16:34 04/24/18 18:03 04/24/18 20:00 Temperature 100.9 F H 98.1 F Pulse Rate 120 H 99 H 96 H Respiratory Rate 15 16 17 Blood Pressure 106/58 L 109/54 L 115/57 L Pulse Oximetry 96 98 98 04/25/18 00:00 04/25/18 04:23 04/25/18 08:00 Temperature 98.3 F 98.5 F 99.5 F Pulse Rate 102 H 115 H 112 H Respiratory Rate 16 17 20 Blood Pressure 109/61 122/80 120/74 Pulse Oximetry 96 96 98 04/25/18 12:00 04/25/18 16:00 Temperature 99.0 F 101.1 F H Pulse Rate 108 H 116 H Respiratory Rate 18 18 Blood Pressure 121/72 139/83 Pulse Oximetry 93 L 93 L Intake & Output 04/24/18 04/25/18 04/25/18 18:59 06:59 18:59 Intake Total 1200 / 1200 1880 / 1880 1000 / 1000 Balance 1200 / 1200 1880 / 1880 1000 / 1000 Weight 55.5 kg 55.5 kg Intake: IV 1200 / 1200 1100 / 1100 1000 / 1000 NS Inj 1,000 ML @ 100 mls/hr IV 1000 / 1000 1000 / 1000 .CONT .Q10H [facility] Rx#:[id number] Ofirmev Inj 1,000 mg In 100 ml 100 / 100 @ 400 mls/hr IV.SIG ONCE ONE Rx #:[id number] Zosyn 4.5 GM Premix 4.5 gm In 100 / 100 100 ml @ 200 mls/hr IV.SIG STAT STA Rx#:[id number] NS Inj 1,000 ML @ 1000 mls/hr 1000 / 1000 IV.SIG BOLUS [facility] Rx#:[id number] Rocephin Inj 1,000 MG In NS Inj 100 / 100 100 ML @ 200 mls/hr IV.SIG Q24H [facility] Rx#:[id number] Oral 780 / 780 Other: # Voids 3 Weight On Admission 55.5 kg Narrative: General patient complains of left-sided flank pain that is slightly better than yesterday. HEENT extraocular movements are intact, clear oropharyngeal mucosa, no JVD Cardiovascular S1-S2 audible, RRR, no murmurs rubs or gallops Respiratory clear to auscultation bilaterally Abdomen soft, nontender, nondistended, normal bowel sounds Extremities no edema 2+ distal pulses in bilateral upper and lower extremities Genitourinary patient complains of dysuria, slightly improved from yesterday. Neuro no neurological deficits. Results - Labs CBC & Chem 7: 04/25/18 06:21 04/25/18 06:21 Laboratory Results - last 24 hr 04/24/18 04/25/18 04/25/18 14:50 06:21 06:21 WBC 12.3 H RBC 3.93 L Hgb 12.0 Hct 34.6 L MCV 87.9 MCH 30.5 MCHC 34.7 RDW 13.6 Plt Count 271 MPV 8.0 Neut % (Auto) 81.3 H Lymph % (Auto) 8.1 L [place] % (Auto) 10.2 H Eos % (Auto) 0.1 Baso % (Auto) 0.3 Neut # (Auto) 10.0 H Lymph # (Auto) 1.0 [place] # (Auto) 1.3 H Eos # (Auto) 0.0 Baso # (Auto) 0.0 WBC Differential . Differential Comment Auto diff final Sodium 140 Potassium 3.0 L Chloride 106 Carbon Dioxide 24.6 Anion Gap 9 BUN 4 L Creatinine 0.43 L Estimated GFR Greater than 89 Random Glucose 100 Calcium 8.1 L Urine Color Yellow Urine Clarity Cloudy H Urine pH 5.0 Ur Specific [place] 1.012 Urine Protein 100 H Urine Glucose (UA) Negative Urine Ketones Negative Urine Occult Blood Moderate H Urine Nitrate Positive H Urine Bilirubin Negative Urine Urobilinogen Less than 2 Ur Leukocyte Esterase Moderate H Urine RBC 5 H Urine WBC Ur Squamous Epith Cells 5 Urine Bacteria Occasional H Micro UA Comment Culture indicated Urine Culture Comments Culture indicated Microbiology 04/24/18 14:50 Clean Catch Urine Urine Culture - Preliminary gram negative rods 04/24/18 14:45 Blood - Peripheral Aerobic Blood Culture - Preliminary No growth in 1 day 04/24/18 14:45 Blood - Peripheral Anaerobic Blood Culture - Preliminary No growth in 1 day 04/24/18 14:30 Blood - Peripheral Aerobic Blood Culture - Preliminary No growth in 1 day 04/24/18 14:30 Blood - Peripheral Anaerobic Blood Culture - Preliminary No growth in 1 day 04/24/18 14:43 Nasal Wash Influenza Types A,B Antigen - Final Negative for FLU A and B antigen Infection due to influenza A or B cannot be ruled out since the antigen present in the sample may be below the detection limit of the test. Assessment and Plan - Assessment (1) Hyponatremia Code(s): E87.1 - Hypo-osmolality and hyponatremia Status: Acute (2) Stenosis of cervical spine with myelopathy Code(s): M48.02 - Spinal stenosis, cervical region; G99.2 - Myelopathy in diseases classified elsewhere Status: Chronic (3) Sepsis Code(s): A41.9 - Sepsis, unspecified organism Status: Acute (4) Pyelonephritis Code(s): N12 - Tubulo-interstitial nephritis, not specified as acute or chronic Status: Acute - Plan This patient is a 53-year-old female with a diagnosis of hypertension, cervical myelopathy with recent anterior cervical C5-C6 microdiscectomy with internal body fusion, anterior cervical plate placement, C5-6 interbody cage placement by Dr. Tyson on 04/08/18. Patient presents to the emergency department with complaints of fevers over the past few days. She also has complaints of left- sided flank pain and was febrile in the emergency department. Urinalysis was positive for a UTI. 1. Sepsis secondary to urinary tract infection present on admission Patient was febrile on admission, afebrile overnight. WBC count elevated with a left shift. Patient tachycardic. Blood cultures are negative, urine culture is growing gram-negative rods. We will follow-up final cultures. No previous urine cultures found in our charts on my review. Continue IV Rocephin. Patient says her symptoms are slightly better than yesterday. CT scan of the C-spine was done which did not show any findings of active infection. Continue pain medications as needed. Panel for fever. 2. Recent cervical fusion/discectomy As mentioned above CT scan did not show any findings consistent with an infectious process of the C-spine. Continue gabapentin and pain medications as needed. 3. Hypertension Continue Norvasc. BP is currently under control. We will continue to monitor and adjust her medications as needed Lovenox for DVT prophylaxis.
--- NOTE | 2018-04-25 19:35 | US ---
EXAM DATE: 04/25/2018 7:17 PM EST AGE/SEX: 53 years / Female INDICATIONS: Flank pain. CLINICAL DATA: This is the patient's initial encounter. Patient reports that signs and symptoms have been present for 1 day and indicates a pain score of 4/10. MEDICAL/SURGICAL HISTORY: Hypercholesterolemia. Hypertension. Anxiety. Asthma. Depression. Rig ht pupil malformation. Tubal ligation. Cervical discectomy. Mandibular surgery. Tracheotomy. COMPARISON: No prior exams available for comparison. MEASUREMENTS: Right Kidney:__12.4 x 5.7 x 4.9 cm Left Kidney:__11.8 x 5.1 x 5.6 cm FINDINGS: Right Kidney: Normal echogenicity and cortical thickness. No solid mass or hydronephrosis. Left Kidney: Normal echogenicity and cortical thickness. No mass or hydronephrosis. Bladder: Within normal limits given the degree of distension. Other: None. CONCLUSION: 1. 1 cm cyst right kidney. Renal ultrasound otherwise unremarkable. Electronically signed by: Saurabh Shaw MD Board Certified Radiologist 04/25/2018 7:34 PM EST
[2018-04-25] MEDS: Enoxaparin Inj 40 MG/0.4 ML Syringe SQ SCH (20:51)
[2018-04-26 05:39] LABS: Baso % (Auto) 0.4 % (0.0-2.0); Eos # (Auto) 0.1 th/mm3 (0.0-0.4); Eos % (Auto) 0.9 % (0.0-4.0); Hematocrit 34.6 % (35.0-46.0); Lymph # (Auto) 1.7 th/mm3 (1.0-4.8); Lymph % (Auto) 17.1 % (9.0-44.0); Mean Corpuscular HGB Conc 34.7 % (32.0-36.0); Mean Corpuscular Hemoglobin 30.6 pg (27.0-34.0); Mean Corpuscular Volume 88.4 fL (80.0-100.0); Mean Platelet Volume 7.6 fL (7.0-11.0); Mono # (Auto) 1.4 th/mm3 (0.0-0.9); Mono % (Auto) 14.7 % (0.0-8.0); Neut # (Auto) 6.5 th/mm3 (1.8-7.7); Neut % (Auto) 66.9 % (16.0-70.0); Platelet Count 307 th/mm3 (150-450); Red Blood Count 3.92 mil/mm3 (4.00-5.30); Red Cell Distribution Width 13.5 % (11.6-17.2); White Blood Count 9.8 th/mm3 (4.0-11.0)
[2018-04-26 06:03] LABS: Anion Gap 9 meq/L (5-15); Blood Urea Nitrogen 3 mg/dL (7-18); Carbon Dioxide 26.4 meq/L (21.0-32.0); Chloride 107 meq/L (98-107); Glomerular Filtration Rate Greater Than 89 mL/min (>89); Glucose,Random 104 mg/dL (74-106); Magnesium 2.1 mg/dL (1.5-2.5); Potassium 3.5 meq/L (3.5-5.1); Sodium 142 meq/L (136-145)
[2018-04-26] MEDS: amLODIPine 10 MG Tablet PO SCH (08:10)
[2018-04-26] MEDS: Gabapentin 100 MG Capsule PO SCH ×3 (08:10→17:09)
[2018-04-26] MEDS: Senna/Docusate Sodium 8.6/50 MG Tablet PO SCH ×2 (08:10→21:43)
[2018-04-26] MEDS: Polyethylene Glycol 3350 17 GM Packet PO SCH (08:11)
[2018-04-26] MEDS: Sod Chloride 0.9% Inj 1,000 ML IV.CONT SCH ×2 (08:17→17:14)
--- NOTE | 2018-04-26 13:23 | P.PNIM ---
Subjective Interval history: Patient complains of dysuria, improving. Flank pain from admission has improved. Physical Exam Vital signs: Vital Signs 04/25/18 16:00 04/25/18 20:00 04/26/18 00:00 Temperature 101.1 F H 99.2 F 99.1 F Pulse Rate 116 H 105 H 106 H Respiratory Rate 18 16 16 Blood Pressure 139/83 113/65 101/56 L Pulse Oximetry 93 L 92 L 93 L 04/26/18 04:00 04/26/18 08:00 04/26/18 12:00 Temperature 100.3 F H 98.2 F 98 F Pulse Rate 108 H 97 H 110 H Respiratory Rate 18 17 18 Blood Pressure 119/61 111/70 111/57 L Pulse Oximetry 94 L 96 95 Intake & Output 04/25/18 04/26/18 04/26/18 18:59 06:59 18:59 Intake Total 3820 / 3820 960 / 960 1000 / 1000 Balance 3820 / 3820 960 / 960 1000 / 1000 Weight 55.7 kg Intake: IV 1620 / 1620 480 / 480 1000 / 1000 NS Inj 1,000 ML @ 125 mls/hr IV 1520 / 1520 480 / 480 1000 / 1000 .CONT .Q8H [facility] Rx#:[id number] Rocephin Inj 1,000 MG In NS Inj 100 / 100 100 ML @ 200 mls/hr IV.SIG Q24H [facility] Rx#:[id number] Oral 2200 / 2200 480 / 480 Other: # Voids 5 2 Narrative: General patient complains of left-sided flank pain that is slightly better than yesterday. HEENT extraocular movements are intact, clear oropharyngeal mucosa, no JVD Cardiovascular S1-S2 audible, RRR, no murmurs rubs or gallops Respiratory clear to auscultation bilaterally Abdomen soft, nontender, nondistended, normal bowel sounds Extremities no edema 2+ distal pulses in bilateral upper and lower extremities Genitourinary patient complains of dysuria, slightly improved from yesterday. Flank pain improving Neuro no neurological deficits. Results - Labs CBC & Chem 7: 04/26/18 04:59 04/26/18 04:59 Laboratory Results - last 24 hr 04/24/18 04/26/18 04/26/18 14:50 04:59 04:59 WBC 9.8 RBC 3.92 L Hgb 12.0 Hct 34.6 L MCV 88.4 MCH 30.6 MCHC 34.7 RDW 13.5 Plt Count 307 MPV 7.6 Neut % (Auto) 66.9 Lymph % (Auto) 17.1 Saline % (Auto) 14.7 H Eos % (Auto) 0.9 Baso % (Auto) 0.4 Neut # (Auto) 6.5 Lymph # (Auto) 1.7 Saline # (Auto) 1.4 H Eos # (Auto) 0.1 Baso # (Auto) 0.0 WBC Differential . Differential Comment Auto diff final Sodium 142 Potassium 3.5 Chloride 107 Carbon Dioxide 26.4 Anion Gap 9 BUN 3 L Creatinine 0.47 L Estimated GFR Greater than 89 Random Glucose 104 Calcium 8.0 L Magnesium 2.1 Urine Color Yellow Urine Clarity Cloudy H Urine pH 5.0 Ur Specific [place] 1.012 Urine Protein 100 H Urine Glucose (UA) Negative Urine Ketones Negative Urine Occult Blood Moderate H Urine Nitrate Positive H Urine Bilirubin Negative Urine Urobilinogen Less than 2 Ur Leukocyte Esterase Moderate H Urine RBC 5 H Urine WBC Ur Squamous Epith Cells 5 Urine Bacteria Occasional H Micro UA Comment Culture indicated Urine Culture Comments Culture indicated Microbiology 04/24/18 14:45 Blood - Peripheral Aerobic Blood Culture - Preliminary No growth in 2 days 04/24/18 14:45 Blood - Peripheral Anaerobic Blood Culture - Preliminary No growth in 2 days 04/24/18 14:30 Blood - Peripheral Aerobic Blood Culture - Preliminary No growth in 2 days 04/24/18 14:30 Blood - Peripheral Anaerobic Blood Culture - Preliminary No growth in 2 days 04/24/18 14:50 Clean Catch Urine Urine Culture - Final Escherichia coli - Imaging Impressions Abdomen/Bladder Ultrasound 04/25/18 00:00 CONCLUSION: 1. 1 cm cyst right kidney. Renal ultrasound otherwise unremarkable. Assessment and Plan - Assessment (1) Hyponatremia Code(s): E87.1 - Hypo-osmolality and hyponatremia Status: Acute (2) Stenosis of cervical spine with myelopathy Code(s): M48.02 - Spinal stenosis, cervical region; G99.2 - Myelopathy in diseases classified elsewhere Status: Chronic (3) Sepsis Code(s): A41.9 - Sepsis, unspecified organism Status: Acute (4) Pyelonephritis Code(s): N12 - Tubulo-interstitial nephritis, not specified as acute or chronic Status: Acute - Plan This patient is a 53-year-old female with a diagnosis of hypertension, cervical myelopathy with recent anterior cervical C5-C6 microdiscectomy with internal body fusion, anterior cervical plate placement, C5-6 interbody cage placement by Dr. Tyson on 04/08/18. Patient presents to the emergency department with complaints of fevers over the past few days. She also has complaints of left- sided flank pain and was febrile in the emergency department. Urinalysis was positive for a UTI. 1. Sepsis secondary to urinary tract infection present on admission Patient was febrile on admission, 1 fever this morning. WBC count elevated with a left shift, now normalized. Patient tachycardic. Blood cultures are negative, urine culture is growing E coli sensitive to Rocephin. No previous urine cultures found in our charts on my review. Continue IV Rocephin for today. If afebrile by tomorrow the patient can be discharged in the am. Patient says her symptoms are getting better, still has some dysuria. CT scan of the C-spine was done which did not show any findings of active infection. Continue pain medications as needed. Panel for fever. 2. Recent cervical fusion/discectomy As mentioned above CT scan did not show any findings consistent with an infectious process of the C-spine. Continue gabapentin and pain medications as needed. 3. Hypertension Continue Norvasc. BP is currently under control. We will continue to monitor and adjust her medications as needed Lovenox for DVT prophylaxis.
[2018-04-26] MEDS: Enoxaparin Inj 40 MG/0.4 ML Syringe SQ SCH (21:42)
[2018-04-27] MEDS: Sod Chloride 0.9% Inj 1,000 ML IV.CONT SCH (04:06)
[2018-04-27] MEDS: amLODIPine 10 MG Tablet PO SCH (08:26)
[2018-04-27] MEDS: Gabapentin 100 MG Capsule PO SCH (08:26)
[2018-04-27] MEDS: Senna/Docusate Sodium 8.6/50 MG Tablet PO SCH (08:26)
[2018-04-27] MEDS: Polyethylene Glycol 3350 17 GM Packet PO SCH (08:27)
--- NOTE | 2018-04-27 11:26 | P.DS ---
DS: Providers Date of admission: 04/24/18 17:28 Primary care physician: Claudia Bhardwaj APRN Consults: 04/24/18 17:31 HUB Only Consult Order Routine Consulting Provider: [facility],Insurance Brief History from admission: 53-year-old female with past medical history significant for hypertension, hyperlipidemia, cervical myelopathy with recent anterior cervical C5-6 microdiscectomy with internal body fusion, anterior cervical plate placement, C5 and 6 interbody cage placement by 04/08, and tobacco abuse who presents to the emergency department today with complaints of fevers for the past several days. Patient states she had a fever yesterday of 102.9 and endorses generalized body aches, nausea x1 today and sore throat. Patient states that she has had somewhat of a sore throat since her surgery but this is unchanged. Denies any cough, shortness of breath, dizziness, lightheadedness. Endorses constipation, last BM today. She complains of suprapubic pain along with bilateral lower back pain, urinary frequency, dysuria. She denies any increase neck pain. Lab work on admission with leukocytosis with white count 14.3, neutrophils 83.8, heart rate 123, temperature 101.6, UA positive with reflex to culture, meeting sepsis criteria. Cervical CT with no perivertebral soft tissue swelling. Chest x-ray negative. DS: Diagnosis Discharge Diagnosis (1) Hyponatremia: Status: Acute (2) Stenosis of cervical spine with myelopathy: Status: Chronic (3) Sepsis: Status: Acute (4) Pyelonephritis: Status: Acute DS: Summary Mrs. Rowley is a 53-year-old female. She had a recent cervical spine surgery. She came in secondary to fevers with sepsis. Thankfully, this was found to be secondary to urinary tract infection without suspicion for involvement of surgical incision. She has been treated with Rocephin while here. Urine cultures grew Escherichia coli with sensitivity to all antibiotics tested. Patient has now been fever free for greater than 24 hours. Patient is medically stable and clear for discharge home today. She will continue on Bactrim with a probiotic for 5 more days. Time Spent with Patient Total time spent providing and/or coordinating discharge services: Quality: VTE Deep Vein Thrombosis/Pulmonary Embolism Present on Admission: No Results Labs on day of discharge: Preliminary micro results at discharge 04/24/18 14:45 Aerobic Blood Culture - Preliminary Blood - Peripheral No growth in 3 days Anaerobic Blood Culture - Preliminary No growth in 3 days 04/24/18 14:30 Aerobic Blood Culture - Preliminary Blood - Peripheral No growth in 3 days Anaerobic Blood Culture - Preliminary No growth in 3 days Impressions ITS Impressions Cervical Spine CT 04/24/18 14:34 CONCLUSION: 1. No acute fracture or prevertebral soft tissue swelling. 2. Moderate spinal stenosis, severe right neuroforaminal narrowing and moderate left foraminal narrowing at C5-6. 3. Mild spinal stenosis, severe left neuroforaminal narrowing, and mild right neuroforaminal narrowing at C4-5. 4. Moderate right neuroforaminal narrowing at C6-7. 5. Mild bilateral foraminal narrowing is noted at C2-3 and C3-4. 6. Scoliosis of the cervical spine. Chest X-Ray 04/24/18 14:34 CONCLUSION: No acute intrathoracic disease. Stable examination. Abdomen/Bladder Ultrasound 04/25/18 00:00 CONCLUSION: 1. 1 cm cyst right kidney. Renal ultrasound otherwise unremarkable. Discharge Plan Discharge Disposition Patient Disposition: Discharge Home Discharge Condition Condition: Stable Discharge Order Discharge Orders: Discharge Order (Routine); Ordered 04/27/18 Ordered By: Rai Feliciano Discharge Details Anticipated Discharge Date: 04/27/18 Physicians Team Primary Care Provider: Claudia Bhardwaj Attending Provider: Rai Feliciano Other Providers: [facility],Insurance Rxs /Orders / Referrals /Forms Prescriptions: New sulfamethoxazole-trimethoprim [Bactrim DS] 800-160 mg tablet 1 tab PO BID 5 Days Qty: 10 RF: 0 Lactobacillus acidophilus 500 million cell capsule 100 mg PO BID Qty: 10 RF: 0 Continue gabapentin 100 mg Capsule 100 mg PO TID RF: 0 amlodipine 10 mg Tablet 10 mg PO DAILY RF: 0 cyclobenzaprine 5 mg Tablet 5 mg PO TID PRN (Reason: Anxiety) RF: 0 hydrocodone-acetaminophen 10-325 mg Tablet 1 tab PO Q4H PRN (Reason: Pain) Qty: 60 RF: 0 Referrals: Claudia Bhardwaj APRN [Primary Care Provider] - See Instructions (CALL THE DAY YOU WOULD LIKE TO BE SEEN) Discharge Instructions Patient Printed Instructions: Sulfamethoxazole/Trimethoprim (By mouth), Probiotic (By mouth), Urinary Tract Infection in Women (GEN), Sepsis (GEN) Status ED Status: Left Department
== END 2018-04-27 11:39 | disposition home or self-care (01) | DRG 872 ==
LOC: NEPE 13:59 → NEDA 17:28 → N07 18:17
PROVIDERS: ADMIT Hospitalist; ATTEND Hospitalist
DX: F41.9 Anxiety disorder, unspecified; G89.29 Other chronic pain; M19.90 Unspecified osteoarthritis, unspecified site; B96.20 Unspecified Escherichia coli [E. coli] as the cause of diseases classified elsewhere; G99.2 Myelopathy in diseases classified elsewhere; F17.210 Nicotine dependence, cigarettes, uncomplicated; E87.1 Hypo-osmolality and hyponatremia; K08.109 Complete loss of teeth, unspecified cause, unspecified class; N10 Acute pyelonephritis; Z98.1 Arthrodesis status; M41.9 Scoliosis, unspecified; A41.9 Sepsis, unspecified organism; K59.09 Other constipation; Z88.1 Allergy status to other antibiotic agents; M54.5 Low back pain; I10 Essential (primary) hypertension; M48.02 Spinal stenosis, cervical region; E78.5 Hyperlipidemia, unspecified
CPT/HCPCS: 71010; 71045; 72125; 76775; 80048; 80053; 81001; 83605; 83735; 85025; 87040; 87077; 87086; 87186; 87275; 87276; 87804; 90765; 90775; 96365; 96375; 97161; 97530; 99285; J0131; J0696; J1650; J2405; J2543; J7030